=== PATIENT | female | born 1955 | race Caucasian/White ===

== ENCOUNTER 2017-07-06 15:49 | Emergency (ER) | payer BC ==
[2017-07-06] MEDS ORDERED: Tetan/Diph/Pertus SYR(Tdap)* 0.5 ML SYR(BOOSTRIX) use SYR IM ONE (16:24)
[2017-07-06] MEDS ORDERED: Rabies Vaccine, PCEC INJ* 1 ml IM ONE (16:24)
[2017-07-06] MEDS ORDERED: Rabies Immune Globulin 10 ML* 150 UNIT/ML VIAL IM ONE (16:24)
--- NOTE | 2017-07-06 16:41 | UC ---
General HPI - History of Current Complaint Hx Obtained From: Patient - exposed to several bats in bedroom 06/03/17. no known physical contact Hx Last Menstrual Period: NA <Sulma Ospina - Last Filed: 07/06/17 16:36> - HPI Summary HPI Summary: CORRECTION - BAT EXPOSURE WAS 07/04/17. <Tiny Robbins - Last Filed: 07/06/17 22:42> - History of Current Complaint Chief Complaint: UCBiteInjury Stated Complaint: RABIES - Allergy/Home Medications Allergies/Adverse Reactions: Allergies Allergy/AdvReac Type Severity Reaction Status Date / Time No Known Allergies Allergy Verified 07/06/17 16:30 Home Medications: Home Medications NK [No Home Medications Reported] 07/06/17 [History Confirmed 07/06/17] PMH/Surg Hx/FS Hx/Imm Hx Previously Healthy: Yes GI/ History: Kidney Stones - Surgical History Surgical History: None - Family History Known Family History: Positive: None - Social History Occupation: Employed Part-time - real estate Alcohol Use: None Substance Use Type: None Smoking Status (MU): Never Smoked Tobacco - Immunization History Vaccination Up to Date: No <Sulma Ospina - Last Filed: 07/06/17 16:36> Review of Systems Constitutional: Negative Neurological: Negative Psychological: Negative All Other Systems Reviewed And Are Negative: Yes <Sulma Ospina - Last Filed: 07/06/17 16:36> Physical Exam Triage Information Reviewed: Yes Appearance: Well-Appearing, No Pain Distress, Well-Nourished Vital Signs: Initial Vital Signs Temp 97.3 F 07/06/17 16:27 Pulse 62 07/06/17 16:27 Resp 16 07/06/17 16:27 BP 134/67 07/06/17 16:27 Pulse Ox 100 07/06/17 16:27 Vital Signs Reviewed: Yes Respiratory Exam: Normal Cardiovascular Exam: Normal Skin Exam: Normal <Sulma Ospina - Last Filed: 07/06/17 16:36> Vital Signs: Initial Vital Signs Temp 97.3 F 07/06/17 16:27 Pulse 62 07/06/17 16:27 Resp 16 07/06/17 16:27 BP 134/67 07/06/17 16:27 Pulse Ox 100 07/06/17 16:27 <Tiny Robbins - Last Filed: 07/06/17 22:42> Course/Dx - Differential Dx - Multi-Symptom Differential Diagnoses: Other - exposure to bat poss rabies exposure Provider Diagnoses: possible rabies exposure <Sulma Ospina - Last Filed: 07/06/17 16:36> Discharge <Sulma Ospina - Last Filed: 07/06/17 16:36> <Tiny Robbins - Last Filed: 07/06/17 22:42> - Discharge Plan Condition: Good Disposition: HOME Patient Education Materials: Rabies Vaccine (By injection), Rabies Immune Globulin (By injection), Diphtheria/Acellular Pertussis/Tetanus Vaccine (By injection) Referrals: No Primary Care Phys,NOPCP [Primary Care Provider] - Additional Instructions: Follow-up with Health department as directed
[2017-07-06 17:43] VITALS: BP 140/65
== END 2017-07-06 17:42 | disposition home or self-care (01) ==
LOC: UCEAST 15:49
DX: Z20.3 Contact with and (suspected) exposure to rabies (principal); Z87.442 Personal history of urinary calculi
CPT/HCPCS: 90375; 90471; 90472; 90675; 90715; 96372; 99201; G0463

== ENCOUNTER 2020-02-14 11:45 | Emergency (ER) | payer MEDICARE ==
[2020-02-14 12:03] VITALS: BP 144/83
--- NOTE | 2020-02-14 12:56 | UC ---
FLU HPI - HPI Summary HPI Summary: 64 y/o female presents to the urgent care c/o nasal congestion w/ clear nasal discharge started about 1 week ago. Her father was Dx w/ influenza A last week. About 2 days ago she spike fever which now resolved w/ Ibuprofen PO. Today she woke up w/ body aches and MALONEY and dry cough and mild hoarseness. Pt has taken Delsym PO to alleviate cough. Pt denies SOB, wheezing, dizziness, Hx of travel, fever today, chest pain, abdominal pain, N/V/D. - History of Current Complaint Chief Complaint: UCGeneralIllness Stated Complaint: COUGH FATIGUE Time Seen by Provider: 02/14/20 12:51 Hx Obtained From: Patient Hx Last Menstrual Period: NA Onset/Duration: Gradual Onset, Lasting Weeks - 1 week, Worse Since - 2 days ago she spike fever which resolved w/ ibuprofen Severity Currently: Mild Severity Initially: Moderate Pain Intensity: 4 - body aches Pain Scale Used: 0-10 Numeric Associated Signs & Symptoms: Positive: Fever, Myalgia, Cough - dry, Nasal Congestion - clear, Headache Related Hx: Possible Flu/Infectious Exposure - influenza A from father - Risk Factors Influenza Risk Factors: Negative - Allergy/Home Medications Allergies/Adverse Reactions: Allergies Allergy/AdvReac Type Severity Reaction Status Date / Time No Known Allergies Allergy Verified 02/14/20 12:04 Home Medications: Home Medications Baclofen 1 tab PO DAILY 02/14/20 [History Confirmed 02/14/20] Lisdexamfetamine(NF) [Vyvanse(NF)] 40 mg PO DAILY 02/14/20 [History Confirmed ] Losartan Potassium 1 tab PO DAILY 02/14/20 [History Confirmed 02/14/20] Oseltamivir CAP* [Tamiflu CAP*] 75 mg PO BID #10 cap 02/14/20 [Rx] PMH/Surg Hx/FS Hx/Imm Hx Previously Healthy: Yes Cardiovascular History: Hypertension Psychological History: Anxiety, Depression - Surgical History Surgical History: Yes Surgery Procedure, Year, and Place: C SECTION, BREAST REDUCTION, RHINOPLASTY, LEFT PATELLA, - Family History Known Family History: Positive: None - Social History Occupation: Retired Lives: With Family Alcohol Use: None Substance Use Type: None Smoking Status (MU): Former Smoker - Immunization History Vaccination Up to Date: No Review of Systems All Other Systems Reviewed And Are Negative: Yes Constitutional: Positive: Fever - 2 days ago, Chills, Fatigue Skin: Positive: Negative Eyes: Positive: Negative ENT: Positive: Nasal Discharge - clear Respiratory: Positive: Cough - dry Cardiovascular: Positive: Negative Gastrointestinal: Positive: Negative Genitourinary: Positive: Negative Motor: Positive: Negative Neurovascular: Positive: Negative Musculoskeletal: Positive: Myalgia Neurological/Mental Status: Positive: Headache Psychological: Positive: Negative Is Patient Immunocompromised?: No Physical Exam - Summary Physical Exam Summary: VITAL SIGNS: Reviewed. GENERAL: Patient is a well developed and nourished male who is sitting comfortably in the examining table. Patient is not in any acute respiratory distress. HEAD AND FACE: No signs of trauma. No ecchymosis, hematomas or skull depressions. No sinus tenderness. EYES: PERRLA, EOMI x 2, No injected conjunctiva, no nystagmus. No photophobia. EARS: Hearing grossly intact. Ear canals and tympanic membranes are within normal limits. MOUTH: Positive pharynx with mild erythema, no exudates, No B/L tonsillar enlargement , no exudate. Uvula in midline. edematous nasal mucosa w/ clear nasal discharge, clear PND NECK: Supple, trachea is midline, Positive anterior cervical lymphadenopathy, no JVD, no carotid bruit, no c-spine tenderness, neck with full ROM. No meningeal signs, no Kernig's or brudzinskis signs. CHEST: Symmetric, no tenderness at palpation LUNGS: Clear to auscultation bilaterally. No wheezing or crackles. CVS: Regular rate and rhythm, S1 and S2 present, no murmurs or gallops appreciated. ABDOMEN: Soft, non-tender. No signs of distention. No rebound no guarding, and no masses palpated. Bowel sounds are normal. EXTREMITIES: FROM in all major joints, no edema, no cyanosis or clubbing. NEURO: Alert and oriented x 3. No acute neurological deficits. Pt follows commands. SKIN: Dry and warm Triage Information Reviewed: Yes Vital Signs: Initial Vital Signs Temp 97.8 F 02/14/20 12:01 Pulse 76 02/14/20 12:01 Resp 16 02/14/20 12:01 BP 144/83 02/14/20 12:01 Pulse Ox 100 02/14/20 12:01 Flu Course/Dx - Course Course Of Treatment: 64 y/o female presents to the urgent care c/o nasal congestion w/ clear nasal discharge started about 1 week ago. Her father was Dx w/ influenza A last week. About 2 days ago she spike fever which now resolved w/ Ibuprofen PO. Today she woke up w/ body aches and MALONEY and dry cough and mild hoarseness. Pt has taken Delsym PO to alleviate cough. Pt denies SOB, wheezing, dizziness, Hx of travel, fever today, chest pain, abdominal pain, N/V/D. No exposure to somenon Dx w/ COVID19. Hx obtained. Pt with URI on examination. Rapid Influenza A&B ordered: result: Influenza A positive.Pt Rx Tamiflu PO to alleviate symptoms. Advised on hand washing and wearing a mask to avoid spreading. Pt advised to rest, increase fluid intake, eat well and avoid strenuous exercise. Pt's BP is elevated today advised to decrease salt in diet, monitor BP and f/u with PCP for further management.If symptoms do not improve or worsen advised to return to the urgent care or f/u with her PCP for further evaluation and treatment. Pt understood and agreed - Differential Dx/Diagnosis Differential Diagnosis/HQI/PQRI: Bronchitis, Influenza, Pneumonia, Upper Respiratory Infection Provider Diagnosis: Influenza A, Uncontrolled hypertension Discharge ED - Sign-Out/Discharge Documenting (check all that apply): Patient Departure - D/C home All imaging exams completed and their final reports reviewed: No Studies - Discharge Plan Condition: Stable Disposition: HOME Prescriptions: Oseltamivir CAP* [Tamiflu CAP*] 75 mg PO BID #10 cap Patient Education Materials: Influenza (ED) Forms: *Work Release Referrals: Sugar Rodriguez MD [Primary Care Provider] - 3 Days Additional Instructions: 1- Please take the full course of the antiviral to avoid resistance. Encourage hand washing and wear a mask to avoid spreading. 2-Please continue taking Tylenol or Ibuprofen PO q6-8hrs prn as instructed after meals to alleviate fever, and sore throat. Increase fluid intake, eat well , rest and avoid strenuous exercise 3-If symptoms do not improve or worsen please return to the urgent care or f/u with your PCP in 2 days for further evaluation and treatment. 4-Your BP is elevated today advised to decrease salt in diet, monitor BP and f/ u with PCP for further management. - Billing Disposition and Condition Condition: STABLE Disposition: Home
[2020-02-14 13:13] LABS: Influenza A Molecular POSITIVE (Negative)
== END 2020-02-14 13:20 | disposition home or self-care (01) ==
LOC: UCEAST 11:45
DX: J10.1 Influenza due to other identified influenza virus with other respiratory manifestations (principal); I10 Essential (primary) hypertension; F41.8 Other specified anxiety disorders; Z79.899 Other long term (current) drug therapy; Z87.891 Personal history of nicotine dependence
CPT/HCPCS: 99212; G0463